=== PATIENT | female | born 1985 | race American Indian/Alaskan Native ===

== ENCOUNTER 2018-03-15 15:38 | Emergency (ER) | payer OTHER ==
[2018-03-15 15:41] VITALS: BMI 33.6
[2018-03-15 15:44] VITALS: RESP 18; O2SAT 100
[2018-03-15 16:35] LABS: URINE BILIRUBIN NEGATIVE (NEGATIVE); URINE BLOOD NEGATIVE (NEGATIVE); URINE GLUCOSE (UA) NEGATIVE (NEGATIVE); URINE LEUKOCYTE ESTERASE SMALL Leu/uL (NEGATIVE); URINE PROTEIN TRACE mg/dL (<30 mg/dL)
[2018-03-15 16:36] LABS: URINE APPEARANCE SL CLOUDY (CLEAR); URINE COLOR YELLOW (YELLOW)
[2018-03-15 16:41] LABS: URINE RBC NEGATIVE /hpf (0-2)
[2018-03-15 16:42] LABS: URINE BACTERIA FEW (NEG)
--- NOTE | 2018-03-15 16:46 | ED PDOC ---
Arrival/HPI - General Chief Complaint: Female Genitourinary Time Seen by Provider: 03/15/18 15:39 Historian: Patient - History of Present Illness Narrative History of Present Illness (Text): 03/15/18 16:42 32 yr old female p/w dysuria and vaginal issue. Pt notes swelling to 8 oclock position of her vagina x1d, she notes that she thought this was a hemorrhoid, and tried putting cream on it without effect. Pt notes swelling is very mild, without redness or tenderness. She notes first time occurence, and that she has a wrap checker appointment already set up for this. She notes going to see wrap checker today, but had to make an appointment for a later day and was sent home. She denies any fever, chills, or vaginal d/c. She notes using condoms consistently, and has not had any rashes. LMP was beginning of the month, normal. No other complaints. Past Medical History - Infectious Disease Hx of Infectious Diseases: None - Psychiatric Hx Substance Use: No - Anesthesia Hx Anesthesia: No Family/Social History Family/Social History: Unknown Family HX Smoking Status: Never Smoked Hx Alcohol Use: No Hx Substance Use: No Allergies/Home Meds Allergies/Adverse Reactions: Allergies No Known Allergies Allergy (Verified 03/15/18 15:40) Review of Systems - Review of Systems Constitutional: Normal Eyes: Normal ENT: Normal Respiratory: Normal Cardiovascular: Normal Gastrointestinal: Normal Genitourinary Female: Dysuria, Other. absent: Frequency, Hematuria, Urine Output Changes, Vaginal Bleeding, Vaginal Discharge Musculoskeletal: Normal Skin: Normal Neurological: Normal Endocrine: Normal Hemo/Lymphatic: Normal Psychiatric: Normal Physical Exam Vital Signs Temp Pulse Resp BP Pulse Ox 03/15/18 15:43 98.6 F 73 18 111/76 100 Temperature: Afebrile Blood Pressure: Normal Pulse: Regular Respiratory Rate: Normal Appearance: Positive for: Well-Appearing, Non-Toxic, Comfortable Pain Distress: None Mental Status: Positive for: Alert and Oriented X 3 - Systems Exam Head: Present: Atraumatic, Normocephalic Pupils: Present: PERRL Extroacular Muscles: Present: EOMI Conjunctiva: Present: Normal Mouth: Present: Moist Mucous Membranes Neck: Present: Normal Range of Motion Respiratory/Chest: Present: Clear to Auscultation, Good Air Exchange. No: Respiratory Distress, Accessory Muscle Use Cardiovascular: Present: Regular Rate and Rhythm, Normal S1, S2. No: Murmurs Abdomen: No: Tenderness, Distention, Peritoneal Signs Genitourinary/Pelvic Exam: Present: Vaginal Lesions (8 oclock bartholin cyst, < .25cm, non indurated, non fluctuant. Non-ttp. No erythema. ). No: Vaginal Discharge, Vaginal Bleeding, Adenexal Tenderness, Adenexal Mass, Cervical Motion Tendernes, Odor Back: Present: Normal Inspection Upper Extremity: Present: Normal Inspection. No: Cyanosis, Edema Lower Extremity: Present: Normal Inspection. No: Edema Neurological: Present: GCS=15, CN II-XII Intact, Speech Normal Skin: Present: Warm, Dry, Normal Color. No: Rashes Psychiatric: Present: Alert, Oriented x 3, Normal Insight, Normal Concentration Medical Decision Making ED Course and Treatment: 03/15/18 16:47 32 yr old F p/w complaint of possible bartholin cyst and dysuria. No STD indication. On exam, very small, non-fluctuant bartholin cyst, without erythema or discharge. No indication for abscess drainage at this time. will d/c home with abx and sitz baths. - Lab Interpretations Lab Results: Lab Results 03/15/18 16:29: Urine Color Yellow, Urine Appearance Sl cloudy, Urine pH 6.0, Ur Specific [place] 1.025, Urine Protein Trace H, Urine Glucose (UA) Negative, Urine Ketones Trace H, Urine Blood Negative, Urine Nitrate Negative, Urine Bilirubin Negative, Urine Urobilinogen 4.0 H, Ur Leukocyte Esterase Small H, Urine RBC Negative, Urine WBC 1 - 3, Ur Epithelial Cells 3 - 4, Urine Bacteria Few Disposition/Present on Arrival - Present on Arrival Any Indicators Present on Arrival: No History of DVT/PE: No History of Uncontrolled Diabetes: No Urinary Catheter: No History of Decub. Ulcer: No History Surgical Site Infection Following: None - Disposition Have Diagnosis and Disposition been Completed?: Yes Diagnosis: Bartholin cyst Disposition: HOME/ ROUTINE Disposition Time: 16:50 Patient Plan: Discharge Patient Problems: Current Active Problems Problem Status Onset Bartholin cyst Acute Condition: GOOD Discharge Instructions (ExitCare): Bartholin's Gland Cyst, How to Do a Sitz Bath Additional Instructions: GAURAV WEBB, thank you for letting us take care of you today. Your provider was Rodrigue Cat and you were treated for UTI. The emergency medical care you received today was directed at your acute symptoms. If you were prescribed any medication, please fill it and take as directed. It may take several days for your symptoms to resolve. Return to the Emergency Department if your symptoms worsen, do not improve, or if you have any other problems. Please contact your doctor or call one of the physicians/clinics you have been referred to that are listed on the Patient Visit Information form that is included in your discharge packet. Bring any paperwork you were given at discharge with you along with any medications you are taking to your follow up visit. Our treatment cannot replace ongoing medical care by a primary care provider outside of the emergency department. Thank you for allowing the [facility] team to be part of your care today. If you had an X-Ray or CT scan: A Radiologist will review the ED reading if any change in treatment is needed we will contact you. If you had a blood, urine, or wound culture: It will take several days for the results, if any change in treatment is needed we will contact you. If you had an STI test: It will take 48 hours for the results. Please call after 1 week if you have not heard back. Prescriptions: Cefixime [Suprax] 400 mg PO DAILY #7 capsule Clindamycin [Cleocin] 300 mg PO QID #28 cap Referrals: Faisal Montana MD [Primary Care Provider] - Follow up with primary Ulices Pettit MD [Staff Provider] - Follow up with primary Forms: [employer] (Malay)
[2018-03-15 18:25] VITALS: BP 118/82; PULSE 69; TEMP 98.5
== END 2018-03-15 17:15 | disposition home or self-care (01) ==
LOC: MERGE 15:38 → ED 15:38
DX: N75.0 Cyst of Bartholin's gland (principal)